=== PATIENT | male | born 2000 | race Caucasian/White ===

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

== ENCOUNTER 2021-09-14 02:39 | Emergency (ER) | payer OTHER, SELFPAY ==
[2021-09-14 02:55] VITALS: BP 165/100; PULSE 124; RESP 21; TEMP 36.8; O2SAT 99; BMI 27.2
[2021-09-14 02:57] LABS: Appearance,Urine CLEAR (Clear); Bilirubin,Urine Negative (Negative); Blood, Urine Negative (Negative); Color,Urine YELLOW (Yellow); Glucose,Urine (UA) Negative (Negative); Ketones,Urine Negative (Negative); Leukocyte Esterase,Urine Negative (Negative); Microscopic, Urine URINE MICROSCOPIC (MICROSCOPIC); Nitrate,Urine Negative (Negative); Protein,Urine Negative (Negative); Specific Gravity, Urine 1.025 (1.005-1.030); Urobilinogen,Urine 0.2 EU/dl (0.2)
[2021-09-14 03:10] LABS: Bacteria,Urine Trace /lpf; Mucus,Urine 1+ /lpf
--- NOTE | 2021-09-14 03:21 | HMH.EDNVD ---
ED Disposition Clinical Impression: Enteritis Disposition: Home, Self-Care Condition on Discharge: Good Instructions: DI for Enteritis Additional Instructions: see pcp for follow up Referrals: Tomi Arenas MD [Primary Care Provider] - - Critical Care Critical Care Time: No Attestation: On 09/14/21, the high probability of a clinically significant, sudden or life threatening deterioration of the following system(s) required my full and direct attention, intervention and personal management. The time I documented below is in addition to time spent performing reported procedures but includes the following listed in this critical care notation. Medical Decision Making - Medical Records Medical records reviewed: Yes: I reviewed the patient's medical records. - Alejandro Inquiry Pt receiving controlled substance: No Vital Signs: 09/14/21 02:55 09/14/21 05:00 Temperature 98.2 F Temperature Source Oral Pulse Rate 89 Pulse Rate [Right Brachial] 124 H Respiratory Rate 21 Blood Pressure 129/70 Blood Pressure [Right Arm] 165/100 H Blood Pressure Mean [Right Arm] 121 Blood Pressure Source [Right Arm] Automatic Cuff Blood Pressure Position [Right Arm] Sitting 02 Sat by Pulse Oximetry 99 99 Oxygen Delivery Method Room Air Room Air - Lab Data Lab results reviewed: Yes: I reviewed the patient's lab results. Lab Results 09/14/21 02:45: Urine Color Yellow, Urine Appearance Clear, Urine pH 6.0, Ur Specific [place] 1.025, Urine Protein Negative, Urine Glucose (UA) Negative, Urine Ketones Negative, Urine Blood Negative, Urine Nitrate Negative, Urine Bilirubin Negative, Urine Urobilinogen 0.2, Ur Leukocyte Esterase Negative, Urine WBC 3-5, Urine Bacteria Trace, Urine Mucus 1+ 09/14/21 03:00: WBC 13.1 H, RBC 5.37, Hgb 15.0, Hct 43.4, MCV 80.8, MCH 27.9, MCHC 34.6, RDW 12.0, Plt Count 243, MPV 7.2 L, Neut % (Auto) 72.9, Lymph % (Auto) 19.6, [place] % (Auto) 5.5, Eos % (Auto) 1.1, Baso % (Auto) 1.0, Neut # (Auto) 9.5 H, Lymph # (Auto) 2.6, [place] # (Auto) 0.7, Eos # (Auto) 0.1, Baso # (Auto) 0.1 09/14/21 03:00: Sodium 140, Potassium 3.8, Chloride 103, Carbon Dioxide 30, Anion Gap 10.8, BUN 11, Creatinine 0.90, Estimated Creat Clear 143, Estimated GFR 109, Est GFR ( Amer) 132, Glucose 108 H, Calcium 9.4, Total Bilirubin 0.3, AST 46, ALT 68, Alkaline Phosphatase 122, Total Protein 8.3 H, Albumin 4.7, Globulin 3.6 H, Albumin/Globulin Ratio 1.3 09/14/21 03:00: ESR 10 09/14/21 03:00: C-Reactive Protein 21.3 H 09/14/21 03:00: Procalcitonin 0.078 09/14/21 03:00: Lipase 61 Result diagrams: 09/14/21 03:00 09/14/21 03:00 Orders (Tests/Meds): ED MEDICATIONS Discontinued Medications Generic Name Dose Route Start Last Admin Trade Name Freq PRN Reason Stop Dose Admin Iopamidol 75 ml 09/14/21 03:40 09/14/21 03:42 Iopamidol-370 (76%);100ml Bottle IV 09/14/21 03:41 75 ml ONCE ONE Administration Sodium Chloride 10 ml 09/14/21 03:40 09/14/21 03:42 Sodium Chloride 0.9% 10ml Syr (Rad Only) IV 09/14/21 03:41 10 ml ONCE ONE Administration ORDERS Category Date Time Status Diarrhea 6-11 Panel, Cdiff PCR Stat Lab 09/14/21 03:04 Ordered - CT Data CT Scan: Abdomen, Pelvis Time Received: 05:[address] Reviewed: Yes: I have viewed the radiologist's interpretation Preliminary Findings: Normal/NAD Medical Decision Narrative: stable exam and labs and ct at this time Nausea/Vomiting/Diarrhea HPI - General Chief complaint: Nausea/Vomiting/Diarrhea Stated complaint: Dizziness,diarrhea but none now Time Seen by Provider: 09/14/21 03:21 Mode of Arrival: Family Vehicle Source of Information: Patient, Medical Record Limitations: No Limitations Description of Symptoms (Recalled from ER Triage Doc. by RN): presents for a main complaint of diarrhea that has him concerned as he had a new sexual partner 3 weeks ago. states he had several bouts of diarrhea where the stool was green in nature and a
--- NOTE | 2021-09-14 03:22 | CT_ITS ---
PROCEDURE INFORMATION: Exam: CT Abdomen And Pelvis With Contrast Exam date and time: 09/14/2021 3:29 AM Age: 20 years old Clinical indication: Other: Diarrhea; Additional info: Bloody green stool following sexual encounter TECHNIQUE: Imaging protocol: Computed tomography of the abdomen and pelvis with contrast. Radiation optimization: All CT scans at this facility use at least one of these dose optimization techniques: automated exposure control; mA and/or kV adjustment per patient size (includes targeted exams where dose is matched to clinical indication); or iterative reconstruction. Contrast material: ISOVUE; Contrast volume: 75 ml; Contrast route: IV; COMPARISON: CR XR PELVIS 1-2V 11/07/2018 12:04 AM FINDINGS: Liver: Normal. No mass. Gallbladder and bile ducts: Normal. No calcified stones. No ductal dilation. Pancreas: Normal. No ductal dilation. Spleen: Normal. No splenomegaly. Adrenal glands: Normal. No mass. Kidneys and ureters: Normal. No hydronephrosis. Stomach and bowel: Unremarkable. No obstruction. No mucosal thickening. Appendix: No evidence of appendicitis. Intraperitoneal space: Unremarkable. No free air. No significant fluid collection. Vasculature: Unremarkable. No abdominal aortic aneurysm. Lymph nodes: There are some mildly prominent lymph nodes seen near the gastroesophageal junction. These measure up to 9 mm in short axis. Urinary bladder: Unremarkable as visualized. Reproductive: Unremarkable as visualized. Bones/joints: Unremarkable. No acute fracture. Soft tissues: Unremarkable. IMPRESSION: 1. The bowel appears unremarkable. 2. Some mildly prominent lymph nodes are seen in the right lower quadrant mesentery of uncertain etiology or clinical significance.
[2021-09-14 03:24] LABS: Basophils # 0.1 K/mm3 (0-0.2); Eosinophils # 0.1 K/mm3 (0.0-0.4); Eosinophils % 1.1 % (0.1-12.0); Hematocrit 43.4 % (42.0-52.0); Lymphocytes # 2.6 K/mm3 (0.7-4.5); Lymphocytes % 19.6 % (10-50); Mean Corpuscular HGB Conc 34.6 g/dL (31.8-35.4); Mean Corpuscular Hemoglobin 27.9 pg (27.0-31.2); Mean Corpuscular Volume 80.8 fl (80-94); Mean Platelet Volume 7.2 fl (7.4-10.4); Monocytes # 0.7 K/mm3 (0.1-1.0); Monocytes % 5.5 % (1.7-9.3); Neutrophils # 9.5 K/mm3 (1.8-7.8); Neutrophils % 72.9 % (37.0-80.0); Platelet Count 243 K/mm3 (142-424); Red Blood Count 5.37 M/mm3 (4.60-6.20); White Blood Count 13.1 K/mm3 (4.5-13.0)
[2021-09-14 03:28] LABS: Chloride 103 mmol/L (98-107)
[2021-09-14 03:29] LABS: Potassium 3.8 mmoL/L (3.5-5.1); Sodium 140 mmol/L (136-145)
[2021-09-14 03:31] LABS: Alanine Aminotransferase 68 U/L (12-78); Aspartate Amino Transferase 46 U/L (17-59); Blood Urea Nitrogen 11 mg/dl (9-20); Creatinine Clearance Estimated 143 mL/min (50-200); Estimated Glomerular Filt Rate 109 ml/min (>60); GFR (African American) 132 ML/MIN (>60)
[2021-09-14 03:32] LABS: Albumin Level 4.7 g/dl (3.5-5.0); Albumin/Globulin Ratio 1.3 (1.1-1.8); Alkaline Phosphatase 122 U/L (38-126); Anion Gap 10.8 mEq/L (5-15); Bilirubin,Total 0.3 mg/dl (0.2-1.3); Calcium 9.4 mg/dl (8.4-10.2); Carbon Dioxide 30 mmol/L (22.0-30.0); Globulin 3.6 g/dL (1.3-3.2); Glucose 108 mg/dl (74-100); Total Protein,Serum 8.3 g/dl (6.3-8.2)
--- NOTE | 2021-09-14 04:32 | PC.NURSE ---
MD AT BEDSIDE DISCUSSING WITH PATIENT POC. FAMILY REMAINS PRESENT. PATIENT QUESTIONS THAT HE MAY HAVE TO LEAVE SOON. EXPLAIN TO PATIENT WE CAN'T ANTICIPATE BUT THAT USUALLY WITHIN THE HOUR FOLLOWING THE SCAN--WE HAVE THE RESULTS. DISCUSSED FURTHER THAT HE MIGHT HAVE TO LEAVE, AND ADVISED IT WAS WITHIN HIS RIGHT, BUT THAT WE WOULD DO OUR BEST TO GET HIM THE RESULTS HE NEEDED.
[2021-09-14 04:34] LABS: Lipase 61 U/L (23-300)
[2021-09-14 04:36] LABS: C-Reactive Protein 21.3 mg/L (0-4)
[2021-09-14 04:49] LABS: Procalcitonin 0.078 ng/mL (0.0-2.0)
[2021-09-14 04:51] LABS: Erythrocyte Sedimentation Rate 10 mm/hr (0-15)
[2021-09-14 05:00] VITALS: BP 129/70; PULSE 89; O2SAT 99
[2021-09-14 05:41] VITALS: BP 130/70; PULSE 78; RESP 15; TEMP 36.7; O2SAT 99
== END 2021-09-14 05:46 | disposition home or self-care (01) ==
PROVIDERS: Emergency Provider Emergency Medicine; PCP Emergency Medicine
DX: R11.2 Nausea with vomiting, unspecified (principal); R19.7 Diarrhea, unspecified; R10.9 Unspecified abdominal pain; F41.9 Anxiety disorder, unspecified
CPT/HCPCS: 74177; 80053; 81001; 83690; 84145; 85025; 85651; 86140; 99285; Q9967

== ENCOUNTER 2022-10-28 22:38 | Emergency (ER) | payer SELFPAY ==
[2022-10-28 22:40] VITALS: BP 129/85; PULSE 119; RESP 20; TEMP 36.6; O2SAT 98; BMI 25.7
[2022-10-28 23:11] LABS: Coronavirus 19, PCR Not Detected (NotDetected); Influenza A, PCR Not Detected (NotDetected); Influenza B, PCR Not Detected (NotDetected)
[2022-10-29 00:45] VITALS: BP 130/75; PULSE 94; RESP 20; TEMP 36.6; O2SAT 98
--- NOTE | 2022-10-29 03:39 | HMH.EDGENADL ---
Discharge Plan Disposition Patient Disposition: Home, Self-Care Condition: Good Prescriptions Prescriptions: New Paxlovid 300 mg (150 mg x 2)-100 mg tablets,dose pack See Rx Instructions .ROUTE .COMPLEX Qty: 30 0RF Rx Instructions: take TWO 150 mg tablets of nirmatrelvir with ONE 100 mg tablet of ritonavir twice daily for 5 days ondansetron 4 mg tablet,disintegrating 4 mg PO DAILY Qty: 30 0RF Referrals Follow up/Referrals: Tomi Arenas MD [Primary Care Provider] - See instructions Activity Restrictions/Add. Instructions Additional Instructions/Restrictions: Please return to the emergency department if you experience any new or worsening symptoms. Clinical Impressions Clinical Impression: Close exposure to 2019-nCoV Stand Alone Forms Stand Alone Forms: Work/School Release Discharge ED Provider: Tano Verma Adult HPI General Chief complaint: Upper Respiratory Infection Stated complaint: covid exposed, cough, no taste Time Seen by Provider: 10/29/22 00:15 Mode of Arrival: Ambulatory Source of Information: Patient Limitations: No Limitations Description of Symptoms (Recalled from ER Triage Doc. by RN): pt reports to have been exposed to some one with covid and flu and is now having symptoms including loss of taste and smell History of Present Illness HPI narrative: Patient presents for evaluation of anosmia and ageusia, gradual in onset over the past 24 hours after recent COVID exposure, describes associated nausea and nonbloody nonbilious emesis, patient has been able to tolerate p.o. intake, no previous therapies, symptoms are consistent with prior diagnosis of COVID-19 over 1 year ago. Patient has otherwise been afebrile, with no associated abdominal pain or chest pain or sore throat. Related Data Previous Rx's Medication Instructions Recorded nirmatrelvir 300 mg (150 mg See Rx Instructions PO .COMPLEX 10/29/22 x2)-ritonavir 100 mg tablet,dose #30 tabs pack (Paxlovid) ondansetron 4 mg disintegrating 4 mg PO DAILY #30 tabs 10/29/22 tablet Allergies Allergy/AdvReac Type Severity Reaction Status Date / Time No Known Allergies Allergy Verified 06/08/20 09:26 [facility] Disclaimer: The information contained in this section may have been updated after the patient was seen, as this information can be updated by other users. Medical History (Updated 10/29/22 @ 00:33 by Tano Verma MD) Attention Deficit Hyperactivity Disorder (ADHD) Social History Smoking Status: Never smoker alcohol intake: never substance use type: denies use current occupational status: student Travel in the last 8 weeks: None housing: house current occupational exposures/hazards: No caffeine: No ROS Obtained: Yes Systems reviewed as appropriate & no additional complaints except as documented Physical Exam General General appearance: alert and in no apparent distress Head Head exam: atraumatic and normocephalic Eye Eye exam: Present normal appearance Neck Neck exam: Present normal inspection Chest Chest inspection: Present normal inspection and symmetric chest wall rise Respiratory Respiratory exam: Present normal lung sounds bilaterally; Absent respiratory distress Cardiovascular Cardiovascular exam: Present regular rate and normal rhythm Abdominal Exam Abdominal exam: Present soft Neurological Exam Neurological exam: Present alert and oriented X3 Psychiatric Psychiatric exam: Present normal affect and normal mood Skin Skin exam: Present warm and dry Medical Decision Making Medical Records Medical records reviewed: Yes I reviewed the patient's medical records. Alejandro Inquiry Pt receiving controlled substance: No Vital Signs: 10/28/22 22:40 10/29/22 00:45 Temperature 98 F 98 F Temperature Source Oral Oral Pulse Rate 94 H Pulse Rate [Left] 119 H Respiratory Rate 20 20 Blood Pressure 130/75 Blood Pressure [Right Arm] 129/85 Blood Press
== END 2022-10-29 00:46 | disposition home or self-care (01) ==
PROVIDERS: Emergency Provider Emergency Medicine; PCP Emergency Medicine
DX: R05.9 Cough, unspecified (principal); R43.0 Anosmia; Z20.822 Contact with and (suspected) exposure to COVID-19; F90.9 Attention-deficit hyperactivity disorder, unspecified type
CPT/HCPCS: 87636; 99283

== ENCOUNTER 2024-05-19 22:32 | Emergency (ER) | payer MEDICAID, SELFPAY ==
[2024-05-19 22:43] VITALS: BP 167/94; PULSE 127; RESP 14; TEMP 37.2; O2SAT 99; BMI 60.2
[2024-05-19 23:09] LABS: Coronavirus 19, PCR Not Detected (NotDetected); Influenza A, PCR Not Detected (NotDetected); Influenza B, PCR Not Detected (NotDetected)
[2024-05-19] MEDS: IBUPROFEN 800 MG TABLET PO (23:09)
[2024-05-19] MEDS: ACETAMINOPHEN 500MG TAB 1000 MG PO (23:09)
[2024-05-19 23:44] LABS: Basophils % 0.2 % (0.1-2.0); Eosinophils # 0.1 K/mm3 (0.0-0.4); Eosinophils % 0.6 % (0.1-12.0); Hematocrit 42.2 % (42.0-52.0); Hemoglobin 14.1 g/dL (14.1-18.0); Lymphocytes # 2.4 K/mm3 (0.7-4.5); Lymphocytes % 14.6 % (10-50); Mean Corpuscular HGB Conc 33.4 g/dL (31.8-35.4); Mean Corpuscular Hemoglobin 27.3 pg (27.0-31.2); Mean Corpuscular Volume 81.6 fl (80-94); Mean Platelet Volume 9.6 fl (7.4-10.4); Monocytes # 1.1 K/mm3 (0.1-1.0); Monocytes % 6.5 % (1.7-9.3); Neutrophils % 77.8 % (37.0-80.0); Platelet Count 215 K/mm3 (142-424); Red Blood Count 5.17 M/mm3 (4.60-6.20); Red Cell Distribution Width 12.5 % (11.5-17.5); White Blood Count 16.7 K/mm3 (4.8-10.8)
[2024-05-19 23:49] LABS: Strep Scrn Group A (Rapid) Negative (Negative)
[2024-05-19 23:51] LABS: MANUAL DIFFERENTIAL MANUAL DIFFERENTIAL (MANUAL DIFF)
[2024-05-20] LABS: Anion Gap 15.5 mEq/L (5-15); Blood Urea Nitrogen 9 mg/dl (9-20); Carbon Dioxide 27 mmol/L (22.0-30.0); Chloride 98 mmol/L (98-107); Creatinine Clearance Estimated 129 mL/min (50-200); Monoscreen (Rapid) Negative (Negative); Potassium 3.5 mmoL/L (3.5-5.1); Sodium 137 mmol/L (136-145)
[2024-05-20 00:01] LABS: Alanine Aminotransferase 50 U/L (12-78); Albumin Level 4.9 g/dl (3.5-5.0); Albumin/Globulin Ratio 1.5 (1.1-1.8); Alkaline Phosphatase 86 U/L (38-126); Aspartate Amino Transferase 31 U/L (17-59); Bilirubin,Total 0.6 mg/dl (0.2-1.3); Calcium 9.6 mg/dl (8.4-10.2); Estimated Glomerular Filt Rate 106 ml/min (>60); GFR (African American) 128 ML/MIN (>60); Globulin 3.3 g/dL (1.3-3.2); Glucose 104 mg/dl (74-100); Total Protein,Serum 8.2 g/dl (6.3-8.2)
[2024-05-20 00:13] LABS: Adenovirus,PCR Not Detected (NotDetected); Bordetella Pertussis Not Detected (NotDetected); Chlamydophila Pneumoniae, PCR Not Detected (NotDetected); Coronavirus 19, PCR Not Detected (NotDetected); Coronavirus 229E Not Detected (NotDetected); Coronavirus NL63 Not Detected (NotDetected); Coronavirus OC43 Not Detected (NotDetected); Coronovirus HKU1,PCR Not Detected (NotDetected); Human Metapneumovirus Not Detected (NotDetected); Influenza A, PCR Not Detected (NotDetected); Influenza AH1, 2009 Not Detected (NotDetected); Influenza AH1, PCR Not Detected (NotDetected); Influenza AH3,PCR Not Detected (NotDetected); Influenza B, PCR Not Detected (NotDetected); Mycoplasma Pneumoniae, PCR Not Detected (NotDetected); Parainfluenza 1, PCR Not Detected (NotDetected); Parainfluenza 2, PCR Not Detected (NotDetected); Parainfluenza 3, PCR Not Detected (NotDetected); Parainfluenza 4, PCR Not Detected (NotDetected); Respiratory Syncytial Virus Not Detected (NotDetected); Rhinovirus/Enterovirus Not Detected (NotDetected)
[2024-05-20 00:34] VITALS: BP 131/98; PULSE 112; RESP 18; TEMP 36.7; O2SAT 99
[2024-05-20 00:34] LABS: Eosinophils % 1 % (0-3); Lymphocytes % 17 % (10-50); Monocytes % 3 % (2-9); Neutrophils % 79 % (42-76); Total Cells Counted 100
[2024-05-20 00:35] LABS: Platelet Estimate Normal; RBC Morphology Normal
--- NOTE | 2024-05-20 03:36 | [facility].EDGENADL ---
Discharge Plan Disposition Patient Disposition: Home, Self-Care Condition: Good Prescriptions Prescriptions: New ibuprofen 600 mg tablet 600 mg PO Q6H PRN (Reason: pain) Qty: 20 0RF acetaminophen 500 mg tablet 500 mg PO Q6H PRN (Reason: pain) Qty: 20 0RF acetaminophen 500 mg tablet 500 mg PO Q6H PRN (Reason: fever or pain) Qty: 20 0RF No Action Paxlovid 300 mg (150 mg x 2)-100 mg tablets,dose pack See Rx Instructions .ROUTE .COMPLEX Qty: 30 0RF Rx Instructions: take TWO 150 mg tablets of nirmatrelvir with ONE 100 mg tablet of ritonavir twice daily for 5 days ondansetron 4 mg tablet,disintegrating 4 mg PO DAILY Qty: 30 0RF Referrals Follow up/Referrals: Channing Quintanilla DO [Primary Care Provider] - See instructions Activity Restrictions/Add. Instructions Additional Instructions/Restrictions: You were evaluated in the ER and are appropriate for discharge at this time. Take Tylenol and ibuprofen if needed, do not exceed the recommended dose on the bottle. This has also been prescribed to you. Drink water and eat a small snack each time you take these medications to avoid side effects. Make an appointment with your primary care doctor for reevaluation in a few days. Return to the ER with any new, worsening, or otherwise concerning symptoms. Clinical Impressions Clinical Impression: Pharyngitis, Nasal congestion Stand Alone Forms Stand Alone Forms: Work/School Release Print Language Print Language: Niuean Discharge ED Provider: Suzanna Cordova General Adult HPI General Chief complaint: Upper Respiratory Infection Stated complaint: sore throat, ishaan Time Seen by Provider: 05/19/24 23:00 Mode of Arrival: Ambulatory Source of Information: Patient Description of Symptoms (Recalled from ER Triage Doc. by RN): Patient complains of nasal congestion, cough, and sore throat for 2 days. History of Present Illness HPI narrative: 23-year-old male presents to the ER for complaints of nasal congestion, cough, sore throat for 2 days. Patient denies any known fevers, no chest pain or difficulty breathing, no headache, dizziness, numbness, tingling, weakness. No difficulty swallowing or sore throat. No pain with movement of the neck or extension of the neck. No voice changes. Patient reports he wants to know if he has something dangerous because his friend is in the ICU. No meds prior to arrival. Related Data Previous Rx's ?Medication ?Instructions ?Recorded nirmatrelvir 300 mg (150 mg See Rx Instructions PO .COMPLEX 10/29/22 x2)-ritonavir 100 mg tablet,dose #30 tabs pack (Paxlovid) ondansetron 4 mg disintegrating 4 mg PO DAILY #30 tabs 10/29/22 tablet acetaminophen 500 mg tablet 500 mg PO Q6H PRN fever or pain 05/20/24 #20 tabs acetaminophen 500 mg tablet 500 mg PO Q6H PRN pain #20 tabs 05/20/24 ibuprofen 600 mg tablet 600 mg PO Q6H PRN pain #20 tabs 05/20/24 Allergies Allergy/AdvReac Type Severity Reaction Status Date / Time No Known Allergies Allergy Verified 12/13/22 12:28 [facility] Disclaimer: The information contained in this section may have been updated after the patient was seen, as this information can be updated by other users. Medical History (Updated 05/20/24 @ 00:31 by Suzanna Cordova MD) Attention Deficit Hyperactivity Disorder (ADHD) Social History Smoking Status: Never smoker alcohol intake: never substance use type: denies use current occupational status: student Travel in the last 8 weeks: None housing: house current occupational exposures/hazards: No caffeine: No Have you lived/traveled outside [place] in past 30 days?: No Contact w/someone who lives/traveled outside US past 30 days?: No Exposure to someone with infectious disease in past 14 days?: No Do you have a fever (greater than 100.4 F or 38 C)?: No Have you tested positive for COVID-19: No Exposed to someone with COVID-19 in past 14 days?: No Do you have a sore throat?: Yes Do you have a cough?: No Do you have any weakness?: No Do you have any diarrhea?: No Are you experiencing any unusual bleeding?: No Do you have any muscle aches/pain?: No Do you have any abdominal pain?: No Are you experiencing loss of taste or smell?: No Other Medical History Have you received the Flu Vaccine for this season: No Have you received the Pneumonia Vaccine: No ROS Obtained: Yes Systems reviewed as appropriate & no additional complaints except as documented per HPI Physical Exam General General appearance: alert and in no apparent distress Head Head exam: atraumatic and normocephalic Eye Eye exam: Present PERRL and EOMI ENT ENT exam: Present mucous membranes moist Expanded ENT Exam Throat exam: Present tonsillar erythema and tonsillomegaly (Mild); Absent tonsillar exudate, R peritonsillar mass, L peritonsillar mass or muffled voice Comment: Voice normal, all posterior oropharyngeal structures symmetric, no pain with rotation or extension of the neck Neck Neck exam: Present normal inspection and full ROM Chest Chest inspection: Present symmetric chest wall rise Respiratory Respiratory exam: Present normal lung sounds bilaterally; Absent respiratory distress, wheezes or stridor Cardiovascular Cardiovascular exam: Present normal rhythm and tachycardia (mild) Abdominal Exam Abdominal exam: Present soft; Absent distention, tenderness, guarding or rebound Extremities Exam Extremities exam: Present full ROM Neurological Exam Neurological exam: Present alert and oriented X3; Absent motor sensory deficit Psychiatric Psychiatric exam: Present normal affect and normal mood Skin Skin exam: Present warm and dry Medical Decision Making Medical Records Screening: Per USPSTF and CDC recommendations, given the prevalence of disease in our region, it is our hospital?s policy to screen for HIV and viral Hepatitis for all patients aged 18 and over and those with ongoing risk factors. Alejandro Inquiry Pt receiving controlled substance: No Vital Signs: 05/19/24 22:43 05/20/24 00:34 Temperature 98.9 F 98.0 F Temperature Source Oral Pulse Rate 112 H Pulse Rate [Right] 127 H Respiratory Rate 14 18 Blood Pressure 131/98 H Blood Pressure [Right Arm] 167/94 H Blood Pressure Mean [Right Arm] 118 Blood Pressure Source [Right Arm] Automatic Cuff Blood Pressure Position [Right Arm] Sitting 02 Sat by Pulse Oximetry 99 Oxygen Delivery Method Room Air Room Air Lab Data Lab Results 05/19/24 00:00: Chlamy pneumoniae PCR Not detected, Adenovirus (PCR) Not detected, B. pertussis DNA (PCR) Not detected, Coronavirus OC43 (PCR) Not detected, Coronavirus HKU1 (PCR) Not detected, Coronavirus 229E (PCR) Not detected, SARS-CoV-2 (PCR) Not detected, Coronavirus NL63 (PCR) Not detected, Human Metapneumovir PCR Not detected, Influenza A (H1) PCR Not detected, Influ A (H1N1/09) PCR Not detected, Influenza A (H3) PCR Not detected, Influenza Type A (PCR) Not detected, Influenza Type B (PCR) Not detected, M. pneumoniae (PCR) Not detected, Parainfluenza 1 (PCR) Not detected, Parainfluenza 2 (PCR) Not detected, Parainfluenza 3 (PCR) Not detected, Parainfluenza 4 (PCR) Not detected, RSV (PCR) Not detected, Entero/Rhino (PCR) Not detected 05/19/24 23:05: SARS-CoV-2 (PCR) Not detected, Influenza A Untype (PCR) Not detected, Influenza Type B (PCR) Not detected 05/19/24 23:24: WBC 16.7 H, RBC 5.17, Hgb 14.1, Hct 42.2, MCV 81.6, MCH 27.3, MCHC 33.4, RDW 12.5, Plt Count 215, MPV 9.6, Neut % (Auto) 77.8, Lymph % (Auto) 14.6, [place] % (Auto) 6.5, Eos % (Auto) 0.6, Baso % (Auto) 0.2, Neut # (Auto) 13.0 H, Lymph # (Auto) 2.4, [place] # (Auto) 1.1 H, Eos # (Auto) 0.1, Baso # (Auto) 0.0, Total Counted 100, Neutrophils % (Manual) 79 H, Lymphocytes % (Manual) 17, Monocytes % (Manual) 3, Eosinophils % (Manual) 1, Platelet Estimate Normal, RBC Morphology Normal, Sodium 137, Potassium 3.5, Chloride 98, Carbon Dioxide 27, Anion Gap 15.5 H, BUN 9, Creatinine 0.90, Estimated Creat Clear 129, Estimated GFR 106, Est GFR ( Amer) 128, Glucose 104 H, Calcium 9.6, Total Bilirubin 0.6, AST 31, ALT 50, Alkaline Phosphatase 86, Total Protein 8.2, Albumin 4.9, Globulin 3.3 H, Albumin/Globulin Ratio 1.5, Monoscreen Negative, Group A Strep Rapid Negative 05/19/24 23:24 05/19/24 23:24 Orders (Tests/Meds): ED MEDICATIONS Discontinued Medications Generic Name Dose Route Start Last Admin Trade Name Freq PRN Reason Stop Dose Admin Acetaminophen 1,000 mg 05/19/24 23:01 05/19/24 23:09 Acetaminophen 500mg Tab PO 05/19/24 23:02 1,000 mg ONCE ONE Administration Ibuprofen 800 mg 05/19/24 23:01 05/19/24 23:09 Ibuprofen 800 Mg Tablet PO 05/19/24 23:02 800 mg ONCE ONE Administration ORDERS Category Date Time Status CBC w/Auto Diff [Complete Blood Count Auto Diff] Stat Lab 05/19/24 23:24 Completed CMP [Comprehensive Metabolic Panel] Stat Lab 05/19/24 23:24 Completed Full Resp Panel w/COVID ([facility]) Routine Lab 05/19/24 00:00 Completed Monoscreen (Rapid) Stat Lab 05/19/24 23:24 Completed Rapid PCR Covid and Flu A/B Stat Lab 05/19/24 23:05 Completed Strep Scrn Group A (Rapid) Stat Lab 05/19/24 23:24 Completed Strep Screen Confirmation Stat Micro 05/19/24 23:24 Received Medical Decision Narrative: In summary, this 23-year-old male presents to the emergency department today with sore throat, cough, congestion for 2 days. On initial evaluation patient is tachycardic but otherwise hemodynamically stable, afebrile, well-appearing. He reports no pain with rotation or extension of the neck, all posterior oropharyngeal structures are symmetric and midline, no voice changes, patient does have erythematous and mildly enlarged tonsils without exudate. No lymphadenopathy. No fevers. Differential diagnosis includes but is not limited to viral syndrome, strep, mono. I had considered FAMILY REUNIFICATION SPECIALIST or RPA but have very low suspicion for these based on clinical findings. Based on these concerns, I ordered basic serum labs, viral swab, monoscreen, strep swab. Patient received Tylenol and ibuprofen for pain management. He reports significant improvement of symptoms on reassessment after taking his medications. COVID, flu, mono, strep negative. CMP nonactionable and unremarkable, CBC with leukocytosis WBC 16.7 is not specifically actionable at this time given patient's good clinical appearance. He has been tolerating oral intake and tolerating oral rehydration, his tachycardia is improving, his pain is dramatically improved. He is resting comfortably and continues to laugh and joke with his friend in the room. I believe he is appropriate for discharge at this time. He was given instructions on continued symptomatic monitoring and management, follow-up instructions, and strict return precautions to the ER including specific precautions for development of FAMILY REUNIFICATION SPECIALIST, RPA, or other concerning infection. He indicated understanding and the patient was discharged in stable condition. Critical Care Critical Care Time Critical Care Time: No
== END 2024-05-20 00:39 | disposition home or self-care (01) ==
PROVIDERS: Emergency Provider Emergency Medicine; PCP Internal Medicine
DX: J02.9 Acute pharyngitis, unspecified (principal); R05.9 Cough, unspecified; R09.81 Nasal congestion; F90.9 Attention-deficit hyperactivity disorder, unspecified type; Z11.52 Encounter for screening for COVID-19
CPT/HCPCS: 80053; 85007; 85025; 85027; 86318; 87430; 87633; 87636; 99283

== ENCOUNTER 2024-05-25 23:01 | Emergency (ER) | payer MEDICAID, SELFPAY ==
[2024-05-25 23:23] VITALS: BP 147/75; PULSE 116; RESP 20; TEMP 37.4; O2SAT 99; BMI 27.2
[2024-05-25 23:34] LABS: Coronavirus 19, PCR Not Detected (NotDetected); Influenza A, PCR Not Detected (NotDetected); Influenza B, PCR Not Detected (NotDetected)
--- NOTE | 2024-05-25 23:55 | [facility].EDGENADL ---
Discharge Plan Disposition Patient Disposition: Home, Self-Care Prescriptions Prescriptions: No Action Paxlovid 300 mg (150 mg x 2)-100 mg tablets,dose pack See Rx Instructions .ROUTE .COMPLEX Qty: 30 0RF Rx Instructions: take TWO 150 mg tablets of nirmatrelvir with ONE 100 mg tablet of ritonavir twice daily for 5 days ondansetron 4 mg tablet,disintegrating 4 mg PO DAILY Qty: 30 0RF ibuprofen 600 mg tablet 600 mg PO Q6H PRN (Reason: pain) Qty: 20 0RF acetaminophen 500 mg tablet 500 mg PO Q6H PRN (Reason: pain) Qty: 20 0RF acetaminophen 500 mg tablet 500 mg PO Q6H PRN (Reason: fever or pain) Qty: 20 0RF Referrals Follow up/Referrals: Provider,Referral, MD [Primary Care Provider] - See instructions Activity Restrictions/Add. Instructions Additional Instructions/Restrictions: Please follow up with your primary care provider. Clinical Impressions Clinical Impression: Acute viral syndrome, Headache Print Language Print Language: Macedonian Discharge ED Provider: Hollis Stewart General Adult HPI General Chief complaint: Upper Respiratory Infection Stated complaint: SOA,cough,headache Time Seen by Provider: 05/25/24 23:55 Mode of Arrival: Ambulatory Source of Information: Patient Description of Symptoms (Recalled from ER Triage Doc. by RN): C/o headache, cough with green sputum and sorethroat x 5 days. C/o shortness of breath. History of Present Illness HPI narrative: 23-year-old male presents with several days of cough congestion body aches headache. Reports some shortness of breath. Related Data Previous Rx's ?Medication ?Instructions ?Recorded nirmatrelvir 300 mg (150 mg See Rx Instructions PO .COMPLEX 10/29/22 x2)-ritonavir 100 mg tablet,dose #30 tabs pack (Paxlovid) ondansetron 4 mg disintegrating 4 mg PO DAILY #30 tabs 10/29/22 tablet acetaminophen 500 mg tablet 500 mg PO Q6H PRN fever or pain 05/20/24 #20 tabs acetaminophen 500 mg tablet 500 mg PO Q6H PRN pain #20 tabs 05/20/24 ibuprofen 600 mg tablet 600 mg PO Q6H PRN pain #20 tabs 05/20/24 Allergies Allergy/AdvReac Type Severity Reaction Status Date / Time No Known Allergies Allergy Verified 12/13/22 12:28 [facility] Disclaimer: The information contained in this section may have been updated after the patient was seen, as this information can be updated by other users. Medical History (Updated 05/26/24 @ 00:04 by Hollis Stewart MD) Attention Deficit Hyperactivity Disorder (ADHD) Social History Smoking Status: Current every day smoker alcohol intake: never substance use type: denies use current occupational status: student Travel in the last 8 weeks: None housing: house current occupational exposures/hazards: No caffeine: No Other Medical History Have you received the Flu Vaccine for this season: No Have you received the Pneumonia Vaccine: No ROS Obtained: Yes All systems reviewed & no additional complaints except as documented Physical Exam General General appearance: alert and in no apparent distress Head Head exam: atraumatic and normocephalic Eye Eye exam: Present normal appearance, PERRL and EOMI ENT ENT exam: Present normal oropharynx and normal external ear exam Neck Neck exam: Present normal inspection and full ROM Chest Chest inspection: Present normal inspection and symmetric chest wall rise; Absent tenderness Respiratory Respiratory exam: Present normal lung sounds bilaterally; Absent respiratory distress Cardiovascular Cardiovascular exam: Present regular rate and normal rhythm Abdominal Exam Abdominal exam: Present soft; Absent distention, tenderness or guarding Extremities Exam Extremities exam: Present normal inspection; Absent edema or joint swelling Back Exam Back exam: Present normal inspection; Absent tenderness Neurological Exam Neurological exam: Present alert and oriented X3; Absent motor sensory deficit Psychiatric Psychiatric exam: Present normal affect and normal mood Skin Skin exam: Present warm, dry and normal color Lymphatic Lymphatic Findings: no adenopathy Medical Decision Making Medical Records Medical records reviewed: Yes I reviewed the patient's medical records. Screening: Per USPSTF and CDC recommendations, given the prevalence of disease in our region, it is our hospital?s policy to screen for HIV and viral Hepatitis for all patients aged 18 and over and those with ongoing risk factors. Alejandro Inquiry Pt receiving controlled substance: No Alejandro was queried for this patient: No Vital Signs: 05/25/24 23:23 05/26/24 01:11 Temperature 99.3 F 98.4 F Temperature Source Oral Pulse Rate 78 Pulse Rate [Right Brachial] 116 H Respiratory Rate 20 20 Blood Pressure 124/87 Blood Pressure [Right Arm] 147/75 H Blood Pressure Mean [Right Arm] 99 Blood Pressure Source [Right Arm] Automatic Cuff Blood Pressure Position [Right Arm] Sitting 02 Sat by Pulse Oximetry 99 Oxygen Delivery Method Room Air Room Air Lab Data Lab results reviewed: Yes I reviewed the patient's lab results. Lab Results 05/25/24 23:30: SARS-CoV-2 (PCR) Not detected, Influenza A Untype (PCR) Not detected, Influenza Type B (PCR) Not detected Orders (Tests/Meds): ED MEDICATIONS Discontinued Medications Generic Name Dose Route Start Last Admin Trade Name Freq PRN Reason Stop Dose Admin Acetaminophen 1,000 mg 05/26/24 00:05 05/26/24 00:29 Acetaminophen 500mg Tab PO 05/26/24 00:06 1,000 mg ONCE ONE Administration Dexamethasone Sodium Phosphate 10 mg 05/26/24 00:05 05/26/24 00:30 Dexamethasone 4mg/Ml 5ml Mdv IV 05/26/24 00:06 10 mg ONCE ONE Administration Lactated Ringer's 1,000 mls @ 999 mls/hr 05/26/24 00:05 05/26/24 00:29 Lactated Ringer's 1000 Ml Bag IV 05/26/24 01:05 999 mls/hr .Q1H1M ONE Administration Ketorolac Tromethamine 30 mg 05/26/24 00:05 05/26/24 00:30 Ketorolac 30mg/Ml Vial IV 05/26/24 00:06 30 mg ONCE ONE Administration Prochlorperazine Edisylate 10 mg 05/26/24 00:05 05/26/24 00:30 Prochlorperazine 10mg/2ml Vial IV 05/26/24 00:06 10 mg ONCE ONE Administration Sodium Chloride 10 ml 05/26/24 00:05 Sodium Chloride 0.9% 10ml Flush Syringe IV 06/25/24 00:04 NEEDED PRN Maintain IV Site ORDERS Category Date Time Status Rapid PCR Covid and Flu A/B Stat Lab 05/25/24 23:30 Completed Medical Decision Narrative: 23-year-old male without significant past medical history presents for headache and viral syndrome. History was obtained via interactive discussion with patient. On arrival, patient is [afebrile, hemodynamically stable, satting appropriately, alert, oriented x4, GCS 15], moving all extremities spontaneously. Full physical exam performed and significant for clear lungs bilaterally, normal neurologic exam Differential includes but is not limited to viral syndrome, tension headache, migraine headache,. Patient was given migraine cocktail including Tylenol Toradol IV fluids Compazine Dex for symptomatic management and correction of underlying abnormalities. Workup initiated including COVID flu swab. On re-evaluation, patient [remains afebrile, HD stable.] Laboratory workup independently interpreted by me and significant for negative COVID flu. Work, chest x-ray, CT imaging was considered, but deemed unnecessary due to history and exam, symptomatic improvement. Given patient history, exam and workup, patient's presentation most likely represents viral syndrome. Patient's headache is gone after interventions patient discharged in stable condition return precautions. Procedures Risk/Benefits of Procedure(s) Were Explained: Yes Critical Care Critical Care Time Critical Care Time: No
[2024-05-26] MEDS: ACETAMINOPHEN 500MG TAB 1000 MG PO (00:29)
[2024-05-26] MEDS: LACTATED RINGERS 1000ML 1,000 ML 999 ML IV (00:29)
[2024-05-26] MEDS: KETOROLAC 30MG/ML VIAL 30 MG IV (00:30)
[2024-05-26] MEDS: DEXAMETHASONE 4MG/ML 5ML MDV 10 MG IV (00:30)
[2024-05-26] MEDS: PROCHLORPERAZINE 10MG/2ML VIAL 10 MG IV (00:30)
[2024-05-26 01:11] VITALS: BP 124/87; PULSE 78; RESP 20; TEMP 36.9; O2SAT 99
== END 2024-05-26 01:15 | disposition home or self-care (01) ==
PROVIDERS: Emergency Provider Emergency Medicine
DX: R51.9 Headache, unspecified (principal); B34.9 Viral infection, unspecified
CPT/HCPCS: 87636; 96361; 96374; 96375; 99284; J0780; J1100; J1885; J7120